=== PATIENT | male | born 1960 | race African-American/Black ===

== ENCOUNTER → 2023-09-04 | Day surgery (SDC) | payer MEDICARE ==
[~2023-09-04] MED LIST: ALBUTEROL 90 MCG/ACT INHALER INH ONE; BUPIVACAINE 0.25% 30ML SDV ONE; COREG12.5 MG PO; CRESTOR10 MG PO; FENTANYL CITRATE/PF 100MCG/2 ML INJ ONE; HYDROCODONE/APAP 7.5MG-325MG 1 EA TAB ONE; LABETALOL HCL 5 MG/ML 20ML VIAL IV ONE; LACTATED RINGER'S 1,000 ML ONE; LIDOCAINE 1% W/EPINEPHRINE 20 ML VIAL ONE; LIDOCAINE HCL 2% LOCAL INJ 5 ML SDV VIAL INJ ONE; METHIMAZOLE5 MG PO; METOPROLOL TARTRATE INJ 1 MG/ML VIAL ONE; MIDAZOLAM HCL 2 MG/2 ML VIAL ONE; PROPOFOL IV EMULSION 10 MG/ML 20 ML VIAL ONE; SEVOFLURANE INHAL SOLN 250 ML PEN BTL ONE; WARFARIN SODIU2.5 MG PO
[2023-09-04 08:14] LABS: BASOPHILS % 0.6 % (0.0-1.0); EOSINOPHILS # (AUTO) 0.2 (0.0-0.4); EOSINOPHILS % 3.3 % (0.0-6.0); HEMATOCRIT 46.2 % (38.2-49.6); HEMOGLOBIN 15.3 g/dL (14.0-18.0); LYMPHOCYTES # (AUTO) 2.6 (1.0-3.2); LYMPHOCYTES % 36.5 % (18.0-39.1); MEAN CORPUSCULAR HEMOGLOBIN 27.6 pg (28-32); MEAN CORPUSCULAR HGB CONC 33.1 g/dL (31-35); MEAN CORPUSCULAR VOLUME 83.2 fL (81-99); MONOCYTES # (AUTO) 0.8 (0.2-0.8); MONOCYTES % 10.6 % (4.4-11.3); NEUTROPHILS # (AUTO) 3.5 (2.1-6.9); NEUTROPHILS % 48.9 % (38.7-80.0); PLATELET COUNT 168 x10e3/uL (140-360); RED BLOOD COUNT 5.55 x10e6/uL (4.3-5.7); RED CELL DISTRIBUTION WIDTH 12.4 % (11.7-14.4); WHITE BLOOD COUNT 7.24 x10e3/uL (4.8-10.8)
[2023-09-04 08:34] LABS: INR 1.12; PROTHROMBIN TIME 14.6 seconds (11.9-14.5)
[2023-09-04 08:35] LABS: PARTIAL THROMBOPLASTIN TIME 35.8 seconds (23.8-35.5)
[2023-09-04 08:41] LABS: ANION GAP 13.1 mmol/L (8-16); CALCIUM 8.8 mg/dL (8.4-10.2); CREATININE, SERUM 0.81 mg/dL (0.72-1.25); POTASSIUM 4.1 mmol/L (3.5-5.1)
[2023-09-04] MEDS: HYDRALAZINE HCL 20 MG/ML VIAL ONE ×2 (11:12→11:25)
[2023-09-04 11:55] VITALS: BP 138/86; PULSE 88; RESP 16; O2SAT 97
== END | disposition home or self-care (01) ==
LOC: OR 06:53
PROVIDERS: ATTEND Surgery
DX: K40.90 Unilateral inguinal hernia, without obstruction or gangrene, not specified as recurrent (principal); I10 Essential (primary) hypertension; I48.0 Paroxysmal atrial fibrillation; Z79.01 Long term (current) use of anticoagulants; E05.90 Thyrotoxicosis, unspecified without thyrotoxic crisis or storm; F17.200 Nicotine dependence, unspecified, uncomplicated; Z95.0 Presence of cardiac pacemaker; Z79.899 Other long term (current) drug therapy
CPT/HCPCS: 36415; 49505; 71046; 80048; 85025; 85610; 85730; 93005; C1781; J0360; J2001; J2250; J2704; J3010; J3490; J7121